=== PATIENT | female | born 1985 | race Caucasian/White ===

== ENCOUNTER 2018-01-29 12:16 | Observation (INO) | payer OTHER ==
[2018-01-29 13:29] LABS: PLATELET COUNT 225 10^3/uL (150-400)
[2018-01-29] MEDS ORDERED: ACET/CAFFEINE/BUTA FIORICET 1 EACH TAB PO PRN (15:17)
--- NOTE | 2018-01-29 15:34 | PDGENHP ---
History and Physical History and Physical: CARE: [facility] HPI: Patient is a 32 yo G 1 P 2 who presents to L&D from the office for extended monitoring and serial BPs/PIH labs after elevated BP in office of 132/92. Trace protein per urine dip in office. She has a history of tension related headaches and reports a headache off and on for the last week. She states it is similar to her typical tension headache and goes away with tylenol. Good movement. Denies LOF or VB. Reports slight increase in lower ext/hand edema over the last several days. Denies visual changes or epigastric pain. EDC: 01/29/2018 which is based on LMP: 04/24/2017 which is known and consistent with Ultrasound at 8 weeks. Her is complicated by: - h/o anxiety - not treated - Rh neg - Rubella low-immune - h/o migraine headaches -typically related to tension and treats with acupuncture Review of Systems: Constitutional: Denies any fever, chills, or fatigue HEENT: denies any visual changes, difficulty swallowing, hearing loss Cardiovascular: Denies any chest pain, palpitations, leg swelling Respiratory: denies any cough, wheezing, or shortness of breathe GI: Denies any nausea, vomiting, diarrhea, constipation : denies any dysuria, urgency, frequency, vaginal bleeding Musculoskeletal: denies any muscle or bone pain Skin: denies any rashes Neuro: denies any seizures, lightheadedness, dizziness, or loss of consciousness Psychiatric: denies any depression, anxiety, or SI/HI thoughts HISTORY: Previous OB history: none Past medical history: migraine headaches, anxiety (not treated) Past surgical history: 2012 left ovary cystectomy Medications: PNV, tylenol Allergies (list reaction): PCN - hives LABS: Rh: A neg ABS: Neg Rubella: low-Immune HbsAg: NR HIV: NR VDRL: NR 1hr: 100 GC: Neg Chlamydia: Neg Pap: Normal GBS: PHYSICAL EXAM: Constitutional: WNL, A&Ox3 Skin: pink, warm, dry HEENT: normocephalic atraumatic, supple Heart: RRR, no murmur Chest: CTA-B Abdomen: Soft, nontender, gravid SVE: /-2 Extremities: 1+ edema, negative lawanda's sign, reflexes 2+, no clonus Neuro: grossly normal Psych: normal affect assessment: Reassuring FHTs, baseline 130s +accels, no decels, moderate variability Contractions: toco quiet Assessment: 1) 32 yo G 1 P 0 with IUP@ 40 weeks ega 2) VSS - BPs 110s-120s/80s 3) PIH labs wnl other than slightly elevated LDH - urine dip neg for protien - random protein level 19. 4) UA suspicious for UTI - 4+ bact/leuks although asymptomatic - will send for culture to confirm 5) Cat 1 FHR tracing 6) Headache relieved with Fioricet. Plan: 1) Will d/c home with strict pre-eclampsia precautions/FKCs 2) Will collect a 24 hour urine and bring back to hospital lab Thursday AM. 3) To call this weekend with any severe headaches that are not relieved with tylenol, increased swelling, visual changes, epigastric pain or decreased movement. Reviewed labor precautions. 4) F/U in office Thursday for BP check and RICHA.
== END 2018-01-29 19:09 | disposition home or self-care (01) ==
LOC: FLD 12:16
PROVIDERS: ADMIT Advanced Practice Midwife; ATTEND Advanced Practice Midwife
DX: Z03.79 Encounter for other suspected maternal and fetal conditions ruled out (principal); R51 Headache; R03.0 Elevated blood-pressure reading, without diagnosis of hypertension; Z3A.40 40 weeks gestation of pregnancy
CPT/HCPCS: G0378 ×2

== ENCOUNTER 2018-01-31 07:36 | Inpatient (IN) | payer OTHER ==
[2018-01-31] MEDS ORDERED: OXYTOCIN 10 UNIT/ML VIAL ONE (22:50)
[2018-01-31] MEDS ORDERED: AMMONIA AROMATIC 1 EACH AMP IH ONE (22:50)
[2018-01-31] MEDS ORDERED: TERBUTALINE SULFATE 1 MG/ML VIAL ONE (22:50)
[2018-01-31] MEDS ORDERED: MISOPROSTOL 200 MCG TAB ONE (22:50)
[2018-01-31] MEDS ORDERED: LIDOCAINE 1% 300 MG/30 ML SDV ONE (22:50)
[2018-01-31] MEDS ORDERED: OLIVE OIL 118 ML BTL ONE (22:50)
[2018-01-31] MEDS ORDERED: EPSOM SALT 454 GM TP PRN (22:51)
[2018-01-31] MEDS ORDERED: TERBUTALINE SULFATE 1 MG/ML VIAL IV PRN (22:51)
[2018-01-31] MEDS ORDERED: OLIVE OIL 118 ML BTL MISC PRN (22:51)
[2018-01-31] MEDS ORDERED: IBUPROFEN 600 MG TAB PO PRN (22:51)
[2018-01-31] MEDS ORDERED: LIDOCAINE 1% 300 MG/30 ML SDV SC PRN (22:51)
[2018-01-31] MEDS ORDERED: LR 1,000 ML IV PRN (22:51)
[2018-01-31] MEDS ORDERED: OXYTOCIN/RINGERS LACTATE 1,000 ML IV PRN (22:51)
[2018-01-31] MEDS ORDERED: MISOPROSTOL 200 MCG TAB PR PRN (22:51)
[2018-01-31] MEDS: ACETAMINOPHEN 325 MG TAB PO SCH (23:45)
[2018-01-31] MEDS ORDERED: HYDROCODONE/APAP 5/325 TAB PO PRN (23:53)
[2018-01-31] MEDS ORDERED: SIMETHICONE 80 MG TAB CHEW PO PRN (23:53)
[2018-01-31] MEDS ORDERED: HYDROCORTISONE 0.5% CREAM TP PRN (23:53)
[2018-01-31] MEDS ORDERED: DOCUSATE SODIUM 100 MG CAP PO PRN (23:53)
--- NOTE | 2018-02-01 00:12 | PDGENHP ---
History and Physical History and Physical: CARE: [facility] HPI: Patient is a 32 yo G 1 P 0 who presents to labor and delivery in active labor. SROM at 2200 - clear fluid. She was found to be complete and +1 station on arrival. She reports good activity. Contractions became more uncomfortable around 5 pm, but she has been mode off and on since Thursday evening. Denies vaginal bleeding other than show. EDC: 01/29/2018 which is based on LMP: 04/24/2017 which is known and consistent with Ultrasound at 8 weeks. Her is complicated by: - h/o anxiety - not treated - Rh neg - Rubella low-immune - h/o migraine headaches -typically related to tension and treats with acupuncture Review of Systems: Constitutional: Denies any fever, chills, or fatigue HEENT: denies any visual changes, difficulty swallowing, hearing loss Cardiovascular: Denies any chest pain, palpitations, leg swelling Respiratory: denies any cough, wheezing, or shortness of breathe GI: Denies any nausea, vomiting, diarrhea, constipation : denies any dysuria, urgency, frequency, vaginal bleeding Musculoskeletal: denies any muscle or bone pain Skin: denies any rashes Neuro: denies any seizures, lightheadedness, dizziness, or loss of consciousness Psychiatric: denies any depression, anxiety, or SI/HI thoughts HISTORY: Previous OB history: none Past medical history: migraine headaches, anxiety (not treated) Past surgical history: 2012 left ovary cystectomy Medications: PNV, tylenol Allergies (list reaction): PCN - hives LABS: Rh: A neg ABS: Neg Rubella: low-Immune HbsAg: NR HIV: NR VDRL: NR 1hr: 100 GC: Neg Chlamydia: Neg Pap: Normal GBS: neg PHYSICAL EXAM: Constitutional: WNL, A&Ox3 Skin: pink, warm, dry HEENT: normocephalic atraumatic, supple Heart: RRR, no murmur Chest: CTA-B Abdomen: Soft, nontender, gravid SVE: 10/+1 Extremities: 1+ edema, negative lawanda's sign, reflexes 2+, no clonus Neuro: grossly normal Psych: normal affect VSS - BP WNL assessment: Reassuring FHTs, baseline 130s with variable decels intermittently, no decels, moderate variability Contractions: toco quiet Assessment: 1) 32 yo G 1 P 0 with IUP@ 40 weeks ega 2) Completely dilated on arrival 3) Cat 2 EFM - good variability/accels - intermittent variable decels Plan: Imminent delivery -anticipate
--- NOTE | 2018-02-01 00:16 | OBDEL ---
Info Type: Vaginal Presentation at Delivery: Vertex L&D Analgesia/Anesthesia Type: Local GBS+: No Indications for Delivery: Spontaneous Labor Vaginal Delivery - Delivery Provider Delivery Physician/CNM: Marlene Kennedy - Labor and Delivery Onset of Contractions Date: 01/31/18 Onset of Contractions Time: 17:00 Onset of Contractions Type: Spontaneous Rupture of Membranes Date: 01/31/18 Rupture of Membranes Time: 22:00 Rupture of Membranes Type: Spontaneous Amniotic Fluid Color: Clear Dilation Complete Date: 01/31/18 Dilation Complete Time: 22:47 Placenta Delivery Date: 01/31/18 Placenta Delivery Time: 22:26 Total Hours of Labor: 5 Laceration: 2nd Degree Repair: 3-0, Vicryl Vaginal Sponge Count Correct: Yes Vaginal Needle Count Correct: Yes Vaginal Sweep Performed: No EBL: 150 Delivery Events: None Delivery Comment: nuchal arm/hand [place] Data STALIN: 01/29/18 Gestational Age: 40 week(s) and 3 day(s) [place] Delivery Date: 01/31/18 Delivery Time: 22:16 Sex of : Male Score (1 Min): 8 Score (5 Min): 9 ICD10 Worksheet Patient Problems: Problems Problem Status Onset Vaginal delivery Acute - ICD10 Problem Qualifiers (1) Vaginal delivery
[2018-02-01] MEDS ORDERED: MEASLES,MUMPS&RUBELLA VACC/PF 0.5 ML VIAL SC ONE ×2 (03:00→12:00)
[2018-02-01] MEDS: IBUPROFEN 600 MG TAB PO SCH ×3 (07:36→22:00)
[2018-02-01] MEDS: ACETAMINOPHEN 325 MG TAB PO SCH ×3 (09:09→18:51)
--- NOTE | 2018-02-01 10:30 | OBPP ---
Progress Note Assessment/Plan: Assessment: first PP day Plan: support plan d/c home tomorrow 02/01/18 10:29 Subjective/ Course: 02/01/18 10:30 pain well controlled breast feeding with assistance Objective: Temp Pulse Resp BP Pulse Ox 37.2 C 98 16 130/88 H 95 02/01/18 08:30 02/01/18 08:30 02/01/18 08:30 02/01/18 08:30 02/01/18 08:30 VSS Uterine Position/Fundal Height: At Umbilicus Uterine Tone: Firm
[2018-02-02] MEDS: IBUPROFEN 600 MG TAB PO SCH ×2 (04:04→10:40)
[2018-02-02] MEDS: ACETAMINOPHEN 325 MG TAB PO SCH ×2 (06:18→10:18)
[2018-02-02 08:26] VITALS: BP 120/83
--- NOTE | 2018-02-02 10:31 | OBPP ---
Progress Note Assessment/Plan: Assessment: PPD #2; establishing Blood pressures WNL; asymptomatic for preeclampsia Plan: 02/02/18 10:30 Discharge home today. Reviewed instruction and plan of care. Subjective/ Course: 02/01/18 10:30 pain well controlled breast feeding with assistance 02/02/18 10:28 Doing well. Pain well controlled with ibuprofen. Bleeding minimal. Denies visual changes, headaches, or epigastric pain. Baby nursing well. Objective: Temp Pulse Resp BP Pulse Ox 36.8 C 73 18 120/83 H 96 02/02/18 08:00 02/02/18 08:00 02/02/18 08:00 02/02/18 08:00 02/02/18 08:00 Small crack left nipples, right intact. Breasts soft. VSS. Blood pressures WNL. Uterine Position/Fundal Height: Umbilicus -3 Uterine Tone: Firm
--- NOTE | 2018-02-02 10:31 | OBGCSDC ---
General Delivery Information - General Info : 1 Para: 1 Abortions: 0 Type: Vaginal L&D Analgesia/Anesthesia Type: None Admission Date: 01/31/18 - Hospital Course : 02/01/18 10:30 pain well controlled breast feeding with assistance 02/02/18 10:28 Doing well. Pain well controlled with ibuprofen. Bleeding minimal. Denies visual changes, headaches, or epigastric pain. Baby nursing well. Vaginal - Delivery Provider Delivery Physician/CNM: Marlene Kennedy - Diagnosis Labor: Spontaneous Rupture of Membranes Type: Spontaneous Amniotic Fluid Color: Clear Laceration: 2nd Degree Repair: 3-0, Vicryl Delivery Events: None - Delivery EBL: 150 Data STALIN: 01/29/18 Gestational Age: 40 week(s) and 4 day(s) [place] Delivery Date: 01/31/18 Delivery Time: 22:16 Sex of Infant: Male Weight (gm): 3220 g Score (1 Min): 9 Score (5 Min): 9 Discharge Information - Discharge Information Condition: Good Instruction/Follow Up: Two Weeks, Four Weeks, Six Weeks
== END 2018-02-02 13:00 | disposition home or self-care (01) | DRG 807 ==
LOC: FLAB 07:36 → OBSVTOIN 22:34 → FLD 22:34 → FOB 02-01 02:00
PROVIDERS: ADMIT Advanced Practice Midwife; ATTEND Advanced Practice Midwife
PROC: 10E0XZZ Delivery of Products of Conception, External Approach (ICD-10-PCS; principal; 2018-01-31)
PROC: 0KQM0ZZ Repair Perineum Muscle, Open Approach (ICD-10-PCS; principal; 2018-01-31)
DX: O70.1 Second degree perineal laceration during delivery (principal); O26.893 Other specified pregnancy related conditions, third trimester; Z67.91 Unspecified blood type, Rh negative; O69.82X0 Labor and delivery complicated by other cord entanglement, without compression, not applicable or unspecified; Z3A.40 40 weeks gestation of pregnancy; Z23 Encounter for immunization; Z37.0 Single live birth
CPT/HCPCS: J2590; J3105